=== PATIENT | male | born 1955 | race Caucasian/White ===

== ENCOUNTER 2016-10-24 08:07 | Emergency (ER) | payer OTHER ==
[2016-10-24 08:24] VITALS: BP 157/90
[2016-10-24] MEDS ORDERED: Lidocaine 2% 20 ML MDV INFILT ONE (08:34)
[2016-10-24] MEDS ORDERED: Lidocaine 2% with EPINEPHrine 1:100,000 20 ML MDV INJECT ONE (08:35)
--- NOTE | 2016-10-24 14:32 | ER ---
HISTORY OF PRESENT ILLNESS: A 61-year-old male here with complaints of catching his right arm on a screw while at work that caused a laceration. The patient states that everything still works, but it did bleed quite a bit and he realized it was bad enough he needs to come in for repair. The patient denies any paperwork being needed since this is a work comp injury. He tells me that he is current on his tetanus status as well. Current medications include Keflex, he is currently taking this for paronychia infection involving the left third finger. He has been on it for just a couple of days. He states the finger is getting more swollen and is turning white. He will probably poke this area when he gets home to drain whatever fluid he can get. OBJECTIVE: GENERAL APPEARANCE: The patient is awake and alert, no obvious distress. VITAL SIGNS: Reviewed as listed. Blood pressure 157/90. EXTREMITIES: Examining the patient's right arm reveals a laceration on the dorsal aspect of the mid forearm area. It is rough in nature and both ends are triangulated. It is a tearing type of laceration that happened. The wound is about 5 cm in length. There is no active bleeding or drainage. The patient has full and unguarded range of motion over the wrist and hand. Examining the left hand reveals a large paronychia-type infection involving the proximal end of the fingernail on the third or long finger. There is swelling around the pustule. The skin is intact. There is a lot of fluctuance here. This condition needs to be lanced. DIAGNOSES: 1. Laceration to right forearm. 2. Paronychia recheck involving the left third finger. TREATMENT PLAN: Starting with the laceration, the site had been cleansed by nursing staff. I anesthetized the area with lidocaine with epi after which a sterile field was developed and the wound was closed by suturing, it required 11 sutures using 5-0 Ethilon. All of the edges came together quite nicely. The patient tolerated this procedure well, post care instructions involving the laceration. Nursing staff cleansed it once more. Antibiotic ointment and a circumferential dressing were applied. He is to keep the initial dressing on for at least 24 hours, he can go up to 36 hours as long as it stays clean and dry, then change down to a smaller gauze dressing and change this daily for two or three more days after which it should be able to be kept open to air. The patient is already on an antibiotic, but he is to still monitor for any sign of new infection and the sutures should come out in 8 to 10 days. Now switching to the paronychia infection, I will I and D this today. The site was swabbed with Betadine followed with alcohol after which using an 11- blade, I made a small jl just proximal to the nail centrally located in the area of involvement, and immediately, some thick green drainage started to come out with pressure. I was able to decompress most of the swelling and all of the area that was fluctuant with a fair amount of thick green discharge present. A pressure dressing will be applied to this as well. The patient is to change this to a Band-Aid, keep it covered for 3 to 4 days as well. He is to stand antibiotics as previously directed and follow up for the paronychia infection as p.r.n. Suture removal again should be in 8 to 10 days. The patient has no further questions. SHERRY/MODL /[id number]
== END 2016-10-24 08:51 | disposition home or self-care (01) ==
LOC: LB.ED 08:07
DX: S51.811A Laceration without foreign body of right forearm, initial encounter (principal); L03.012 Cellulitis of left finger; W22.8XXA Striking against or struck by other objects, initial encounter; Y99.0 Civilian activity done for income or pay
CPT/HCPCS: 12002; 99283-25

== ENCOUNTER 2020-02-09 12:25 | Emergency (ER) | payer OTHER ==
[2020-02-09 12:54] VITALS: BP 130/74; PULSE 83
--- NOTE | 2020-02-09 13:06 | EDM.PDOC ---
ED HPI GENERAL MEDICAL PROBLEM - General Chief Complaint: General Stated Complaint: RIGHT LEG WORK INJURY Time Seen by Provider: 02/09/20 12:50 Source of Information: Reports: Patient, RN History Limitations: Reports: No Limitations - History of Present Illness INITIAL COMMENTS - FREE TEXT/NARRATIVE: patient fell off scaffolding landing on right heel. Denies any other injuries, no LOC. Unable to bear weight after fall. CMS+, pedal pulses present. Onset: Today Location: Reports: Lower Extremity, Right Quality: Reports: Ache Severity: Mild Improves with: Reports: Other Worsens with: Reports: Other, Movement Associated Symptoms: Reports: No Other Symptoms Right Ankle Pain Score (Numeric/FACES): 6 - Related Data Allergies Allergy/AdvReac Type Severity Reaction Status Date / Time No Known Allergies Allergy Verified 02/09/20 12:48 Home Meds: Home Meds cephALEXin [Take Home: Cephalexin 250 MG, 4 Cap Pack] 500 mg PO BID 10/24/16 [History] Hydrocodone/Acetaminophen [[facility] 5-325 Tablet] 1 each PO Q6HR #20 tablet 02/09/20 [Rx] Past Medical History - Past Health History Medical/Surgical History: Denies Medical/Surgical History Social & Family History - Family History Family Medical History: Noncontributory - Tobacco Use Smoking Status *Q: Never Smoker - Caffeine Use Caffeine Use: Reports: Coffee - Recreational Drug Use Recreational Drug Use: No ED ROS GENERAL - Review of Systems Review Of Systems: See Below Constitutional: Reports: No Symptoms HEENT: Reports: No Symptoms Respiratory: Reports: No Symptoms Cardiovascular: Reports: No Symptoms Endocrine: Reports: No Symptoms GI/Abdominal: Reports: No Symptoms : Reports: No Symptoms Musculoskeletal: Reports: Foot Pain, Joint Pain, Joint Swelling Skin: Reports: Other (bruising and swelling noted to right ankle) Neurological: Reports: No Symptoms. Denies: Numbness Psychiatric: Reports: No Symptoms Hematologic/Lymphatic: Reports: No Symptoms ED EXAM, GENERAL - Physical Exam Exam: See Below Free Text/Narrative:: offered pain medication, patient refused at this time. RLE elevated and ice applied. Exam Limited By: No Limitations General Appearance: Alert, No Apparent Distress Throat/Mouth: Normal Voice Head: Atraumatic Neck: Normal Inspection, Full Range of Motion Respiratory/Chest: No Respiratory Distress Cardiovascular: No Edema, No JVD Peripheral Pulses: 3+: Posterior Tibial (L), Posterior Tibial (R), Dorsalis Pedis (L), Dorsalis Pedis (R) Back Exam: Full Range of Motion Extremities: Normal Capillary Refill, Joint Swelling, Limited Range of Motion Neurological: Alert, Oriented, No Motor/Sensory Deficits Psychiatric: Normal Affect Skin Exam: Warm, Dry Lymphatic: No Adenopathy Course - Vital Signs Last Recorded V/S: Last Vital Signs Temp 98.1 F 02/09/20 12:35 Pulse 83 02/09/20 12:35 Resp 18 02/09/20 12:35 BP 130/74 02/09/20 12:35 Pulse Ox 99 02/09/20 12:35 - Orders/Labs/Meds Orders: Active Orders 24 hr Category Date Time Status Foot wo Cont Rt [CT] Stat Exams 02/09/20 14:33 Ordered Departure - Departure Time of Disposition: 15:00 Disposition: Home, Self-Care 01 Clinical Impression: Calcaneal fracture Qualifiers: Encounter type: initial encounter Calcaneus location: unspecified portion of calcaneus Fracture type: closed Fracture alignment: nondisplaced Laterality: right Qualified Code(s): S92.001A - Unspecified fracture of right calcaneus, initial encounter for closed fracture - Discharge Information *PRESCRIPTION DRUG MONITORING PROGRAM REVIEWED*: Not Applicable *COPY OF PRESCRIPTION DRUG MONITORING REPORT IN PATIENT ADRIAN: Not Applicable Prescriptions: Hydrocodone/Acetaminophen [[facility] 5-325 Tablet] 1 each PO Q6HR #20 tablet Instructions: Cast or Splint Care, Adult, [facility] Referrals: PCP,None [Primary Care Provider] - Forms: ED Department Discharge Additional Instructions: Discharge home. [facility] will contact you with the [facility] [employer]. Ibuprofen 600mg by mouth and Tylenol 650mg by mouth every 6 hours for pain. Ice for the next 24-48 hours. elevated the leg when sitting. Refrain from alcohol. Use a walker when ambulating. Dr. Leonard will see you in [place] on the . His office will call you to schedule a time. Keep the splint in place. Watch your toes for d ecreased circulation as we discussed. Return to ED for any increased or new concerning symptoms including uncontrolled pain. Use 600mg ibuprofen and 650mg of tylenol every 6 hours as needed for pain. Remember the norco also contains 325mg tylenol per pill, do not exceed 4000mg tylenol daily. Rest, ice elevate. Use walked, NO weight bearing. Sepsis Event Note (ED) - Evaluation Sepsis Screening Result: No Definite Risk - Focused Exam Vital Signs: Vital Signs Temp Pulse Resp BP Pulse Ox 02/09/20 12:35 98.1 F 83 18 130/74 99 02/09/20 12:34 98.1 F 83 18 130/74 99 - Problem List Review Problem List Initiated/Reviewed/Updated: Yes - My Orders Last 24 Hours: My Active Orders 02/09/20 14:33 Foot wo Cont Rt [CT] Stat - Assessment/Plan Last 24 Hours: My Active Orders 02/09/20 14:33 Foot wo Cont Rt [CT] Stat Plan: Bulky padding and posterior splint placed, instructed patietnt to assess toes for circulation. Patient verbalized understanding of instructions.
--- NOTE | 2020-02-09 13:51 | CR ---
DATE OF SERVICE: 02/09/2020 CLINICAL DATA: Fall Right foot: No priors. There is a fracture through the posterior aspect of the calcaneus. There is a questionable fracture through the anterior aspect of the calcaneus. No other definite fractures. 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 No other acute abnormalities. [facility]
--- NOTE | 2020-02-09 13:55 | CR ---
DATE OF SERVICE: 02/09/2020 CLINICAL DATA: Fall Right ankle: No priors. There is a fracture through the posterior aspect of the calcaneus. There is also a questionable fracture through the anterior aspect of the calcaneus. A CT scan fully evaluate is recommended. No other acute abnormalities. [facility]
--- NOTE | 2020-02-10 10:56 | CT ---
DATE OF SERVICE: 02/09/20 CLINICAL DATA: Trauma, fall. RIGHT FOOT AND ANKLE CT: Multislice axial acquisition through the ankle and foot was performed. Axial images and sagittal and coronal reformations are reviewed. There is a severely comminuted fracture involving the calcaneus. The fracture lines extend to the subtalar joint as well as to the calcaneocuboid joint. There is mild impaction and mildly displaced with flattening of Bohler angle. No other fracture is identified. [id number] [facility]
== END 2020-02-09 15:00 | disposition home or self-care (01) ==
LOC: LB.ED 12:25
DX: S92.001A Unspecified fracture of right calcaneus, initial encounter for closed fracture (principal); W12.XXXA Fall on and from scaffolding, initial encounter
CPT/HCPCS: 73600-RT; 73620-RT; 73700-RT; 99284-25